=== PATIENT | female | born 1975 | race Caucasian/White ===

== ENCOUNTER 2019-07-12 00:06 | Emergency (ER) | payer SELFPAY ==
[~2019-07-12] VITALS: Ht 162.6 cm; Wt 73.5 kg
[2019-07-12 00:10] VITALS: BP 129/76
--- NOTE | 2019-07-12 00:16 | NUR ---
43 Y/O FEMALE BIB FAMILY. REPORTS PAIN IN LUQ THAT RADIATES TO RLQ. STATES THAT IT FEELS LIKE CRAMPING PAIN. PATIENT STATES PAIN IS "EXCRUCIATING". LAST TWO BOWEL MOVEMENTS HAVE BEEN NORMAL. DENIES NAUSEA/VOMITING. PAIN IS AN 8/10 ACUTE PAIN. STOMACH IS DISTENDED; BOWEL SOUNDS HEARD ON ALL FOUR QUADRANTS. SLIGHT GRIMACING NOTED UPON PALPATION. ERMD MADE AWARE. SIDE RAILSX1. PMH:DENIES RX:DENIES NKDA
--- NOTE | 2019-07-12 00:16 | NUR ---
PT TAKEN TO BED 5
--- NOTE | 2019-07-12 00:21 | NUR ---
Dr. Lopez examining patient.
[2019-07-12] MEDS ORDERED: KETOROLAC 30 MG/ML VIAL IM ONE (00:25)
--- NOTE | 2019-07-12 01:14 | NUR ---
Ale anglin in [facility] - 07/12/19 at 0114 by HUGO X-Ray at bedside.
--- NOTE | 2019-07-12 01:39 | NUR ---
PT. TAKEN TO RADIOLOGY.
--- NOTE | 2019-07-12 01:44 | NUR ---
PT. BACK FROM RADIOLOGY.
[2019-07-12 02:05] VITALS: BP 129/76
--- NOTE | 2019-07-12 02:05 | NUR ---
Patient discharged with v/s stable. Written and verbal after care instructions given and explained. Patient alert, oriented and verbalized understanding of instructions. Ambulatory with steady gait. All questions addressed prior to discharge. ID band removed. Patient advised to follow up with PMD. Rx of MIRALAX; MINERAL OIL given. Patient educated on indication of medication including possible reaction and side effects. Opportunity to ask questions provided and answered.
== END 2019-07-12 02:05 | disposition home or self-care (01) ==
LOC: MED 00:06
DX: R10.84 Generalized abdominal pain (principal)
CPT/HCPCS: 74018; 81002; 81025; 96372; 99283; J1885